=== PATIENT | female | born 1940 | race Caucasian/White ===

== ENCOUNTER 2020-11-18 14:56 | Emergency (ER) | payer OTHER ==
[~2020-11-18] VITALS: Ht 165.1 cm; Wt 99.8 kg
[2020-11-18 18:29] LABS: Basophils # (auto) 0.1 10 ^3/uL (0-0.2); Eosinophils # (auto) 0.1 10 ^3/uL (0-0.8); Eosinophils % (auto) 1.2 % (0.0-7.0); Hemoglobin 11.2 g/dL (12.2-16.2); Lymphocytes # (auto) 0.9 10 ^3/uL (0.4-5.4); Lymphocytes % (auto) 7.4 % (10.0-50.0); White Blood Cell 12.1 10^3/uL (4.4-10.8)
[2020-11-18 18:32] LABS: Basophils % (auto) 0.9 % (0.0-2.0); Hematocrit 33.7 % (36.0-46.0); Mean Corpuscular Hemoglobin 34.6 pg (28.0-32.0); Mean Corpuscular Hgb Conc. 33.2 g/dL (32.0-36.0); Monocytes # (auto) 0.9 10 ^3/uL (0-1.3); Monocytes % (auto) 7.6 % (0.0-12.0); Neutrophils % (auto) 82.9 % (37.0-80.0); Platelet Count (auto) 297 10^3/uL (140-450); Red Blood Cells 3.24 10^6/uL (4.0-5.20); Red Cell Distribution Width 16.3 % (11.8-14.3)
[2020-11-18 18:47] LABS: Albumin 3.3 g/dL (3.4-5.0); Anion Gap 9 (5-15); Blood Urea Nitrogen 8 mg/dL (7-18); Calcium 8.9 mg/dL (8.5-10.1); Carbon Dioxide 25 mmol/L (21-32); Chloride 105 mmol/L (98-107); Glucose 86 mg/dL (74-106); Potassium 3.5 mmol/L (3.5-5.1); Sodium 139 mmol/L (136-145)
[2020-11-18 18:50] LABS: Alanine Aminotransferase 18 U/L (13-56); Aspartate Aminotransferase 21 U/L (15-37); BUN/Creatinine Ratio 12.1; GFR African American 111 mL/min; GFR Non-African American 92 mL/min
[2020-11-18 18:55] VITALS: BP 130/62
[2020-11-18 18:55] LABS: Alkaline Phosphatase 62 U/L (45-117); Bilirubin, Total 1.2 mg/dL (0.2-1.0); Total Protein 6.4 g/dL (6.4-8.2)
== END 2020-11-18 21:20 | disposition home or self-care (01) ==
LOC: ER 14:56
DX: R09.02 Hypoxemia (principal); D64.9 Anemia, unspecified; I10 Essential (primary) hypertension; R79.89 Other specified abnormal findings of blood chemistry; Z90.49 Acquired absence of other specified parts of digestive tract; Z20.828 Contact with and (suspected) exposure to other viral communicable diseases
CPT/HCPCS: 36415; 71045; 80053; 83880; 84484; 85025; 87426; 93005; 99285; C9803; U0003